=== PATIENT | female | born 1995 | race Caucasian/White ===

== ENCOUNTER 2017-04-09 08:33 | Day surgery (SDC) | payer OTHER ==
[2017-04-05 14:16] VITALS: BMI 37.9
[2017-04-09] MEDS ORDERED: PROPOFOL 20 ML ONE ×2 (09:26→11:24)
[2017-04-09] MEDS ORDERED: MIDAZOLAM HCL 2 MG/2 ML SINGLE DOSE VIAL ONE ×2 (09:26→10:54)
[2017-04-09] MEDS ORDERED: BUPIVACAINE HCL/PF 0.5% (5MG/ML) 10 ML VIAL ONE (10:42)
[2017-04-09] MEDS ORDERED: LIDOCAINE HCL 1%, 10 MG/ML (20ML VIAL) ONE (10:42)
[2017-04-09] MEDS ORDERED: LIDOCAINE HCL 1%, 10 MG/ML (20ML VIAL) IJ ONE (11:27)
[2017-04-09] MEDS ORDERED: BUPIVACAINE HCL/PF 0.5% (5MG/ML) 10 ML VIAL IJ ONE (11:27)
[2017-04-09] MEDS ORDERED: DEXAMETHASONE SOD PHOSPHATE 4 MG/1 ML VIAL ONE (11:29)
[2017-04-09] MEDS ORDERED: DEXAMETHASONE SOD PHOSPHATE 4 MG/1 ML VIAL NR ONE (11:33)
[2017-04-09] MEDS ORDERED: ONDANSETRON 4 MG/2 ML VIAL IVPUSH PRN (11:56)
[2017-04-09] MEDS ORDERED: oxyCODONE HCL 5 MG TABLET PO PRN ×2 (11:56)
[2017-04-09] MEDS ORDERED: LACTATED RINGERS SOLUTION 1,000 ML IV SCH (12:00)
[2017-04-09 13:08] VITALS: TEMP 98.1
[2017-04-09 13:53] VITALS: BP 123/77; PULSE 86
--- NOTE | 2017-04-16 10:10 | OP ---
DATE OF OPERATION: 04/09/2017 PRINCIPLE DIAGNOSIS: Painful ingrown nail with cellulitis, medial and lateral sides of right hallux nail plate. OPERATION: Straight-back matrixectomy with chemical phenol cauterization, right great toe. POSTOPERATIVE DIAGNOSIS: Painful ingrown nail with cellulitis, medial and lateral sides of right hallux nail plate. SURGEON: Concha eWbster DPM TAPE RECORDER REPAIRER: None. ANESTHESIA: Local with IV sedation. DESCRIPTION OF PROCEDURE: With the patient brought into the operating room and placed on the table in a supine position, a well-padded right ankle tourniquet was applied, and the foot was elevated, prepped and draped in the usual sterile manner. The tourniquet was put on to 250 mmHg, and under satisfactory local anesthesia, at this time, using a flat spatula after Betadine and local block, the medial and lateral sides of the hallux were lifted all the way down to the base of the matrix underneath the cuticle and utilizing a double-action bone-cutter as no Russian Anvil was available, the nail spicule was removed in total on the medial and lateral sides of the right hallux. There was a small amount of sanguineous drainage just at the base of the proximal cuticle, and utilizing phenol swab for 3 minutes a phenol swab was placed on the medial side and on the lateral side of the right hallux nail fold, where a space was created after removing the ingrown infected nail spicule on both sides of that right great toe. Status post satisfactory application of the chemical cautery, a rinse with alcohol was performed. Betadine Adaptic was placed in that area. With some hemostatic gauze in the medial and lateral sides of the nail groove of the right hallux, the tourniquet was dropped. There was a small amount of oozing into the hemostatic gauze, which stopped the bleeding instantaneously. A 4 x 4 gauze was wrapped around the toe with a 4-inch Juju and an Bandar wrap. The patient had a normal hyperemic flush to return to all 5 digits to the right foot. Wound expectancy clean-contaminated. Patients vital signs were to preoperative levels, and the patient tolerated the procedure and anesthesia well and left the recovery room with her vital signs stable. CONCHA WEBSTER DPM [id number]
--- NOTE | 2017-04-17 11:18 | PATH ---
Surgical Pathology Report Patient Name: JOANNE JUDD [facility]. Rec. #: [id number] /Age/Gender: 1995 (Age: 21) / F Account: [id number] Location: [facility] Taken: 04/09/2017 Received: 04/09/2017 Reported: 04/11/2017 Physicians: Concha Holden DPM Specimen(s) Received RIGHT BIG TOE NAIL MATRIX Clinical History Painful right great toe Final Diagnosis Nail matrix, right big toe, matrixectomy: Fragments of nail with degenerative changes and nail matrix with active and chronic inflammation. No fungal organisms identified with PAS stain. Electronically Signed Mike Wall M.D. Gross Description Received in formalin labeled "nail matrix right big toe" is a 1.5 x 1.3 x 0.1 cm aggregate of multiple porter, irregular portions of unguis. The specimen is entirely submitted in one cassette. /04/09/2017 saudi04/09/2017
== END 2017-04-09 13:55 | disposition home or self-care (01) ==
LOC: JASU-SURG 08:33
PROVIDERS: ATTEND Podiatrist
PROC: 0HBRXZZ Excision of Toe Nail, External Approach (ICD-10-PCS; principal; 2017-04-09 10:00)
DX: L60.0 Ingrowing nail (principal); L03.031 Cellulitis of right toe; M79.674 Pain in right toe(s)
CPT/HCPCS: 84703; 88305-TC; 88312-TC; 94760

== ENCOUNTER 2019-08-18 08:59 | Emergency (ER) | payer OTHER ==
[2019-08-18 09:04] VITALS: BP 120/75; PULSE 77; TEMP 98.3; BMI 37.0
[2019-08-18] MEDS ORDERED: IBUPROFEN 400 MG TABLET (FP) PO ONE ×2 (09:16→09:23)
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
== END 2019-08-18 09:35 | disposition home or self-care (01) ==
LOC: FER 08:59
DX: M54.2 Cervicalgia (principal); V43.52XA Car driver injured in collision with other type car in traffic accident, initial encounter; Y93.89 Activity, other specified; Y92.410 Unspecified street and highway as the place of occurrence of the external cause
CPT/HCPCS: 99281-25